=== PATIENT | female | born 1955 | race Caucasian/White ===

== ENCOUNTER → 2018-11-12 | Outpatient (REF) | payer OTHER ==
[~2018-11-12] MED LIST: TIZA4TAB3 PO; ULTR37.539 PO; VOLT1GEL2 TOP
== END ==
LOC: M LAB LCGH 12:11
PROVIDERS: ATTEND Physician Assistant
DX: Z12.4 Encounter for screening for malignant neoplasm of cervix (principal)

== ENCOUNTER 2023-10-15 10:31 | Day surgery (SDC) | payer OTHER ==
[~2023-10-15] VITALS: Ht 160 cm; Wt 71.8 kg
[~2023-10-15 10:31] MED LIST changes: +IBUP200T46 PO; +LIDOCAINE 3.5 % 1ML OPHTH TOPICAL GEL OU ONE; +MIDAZOLAM INJ 2MG/2ML VIAL As Ordered ONE; +fentaNYL 100 MCG/2 ML INJECTION As Ordered ONE
[2023-10-15] MEDS ORDERED: LR 1,000 ML IV SCH (11:25)
[2023-10-15] MEDS: LIDOCAINE 2% W/EPINEPHRINE 20ML VIAL **PRES FREE As Ordered ONE (11:53)
[2023-10-15] MEDS: TOBRADEX OPHTH OINT 3.5 GM As Ordered ONE (11:57)
[2023-10-15 12:10] VITALS: BP 123/58; TEMP 97.7; O2SAT 98
== END 2023-10-15 12:55 | disposition home or self-care (01) ==
LOC: M SDC 10:31
PROVIDERS: ATTEND Ophthalmology
DX: H02.834 Dermatochalasis of left upper eyelid (principal); H02.831 Dermatochalasis of right upper eyelid; Z88.1 Allergy status to other antibiotic agents
CPT/HCPCS: 15822; 88300; J2250; J3010